=== PATIENT | male | born 1945 | race Caucasian/White ===

== ENCOUNTER 2018-10-05 05:31 | Inpatient (IN) | payer MEDICARE, OTHER ==
--- NOTE | 2018-09-26 20:57 | HP ---
PREOPERATIVE HISTORY AND PHYSICAL: DATE OF ADMISSION/SURGERY: 10/05/18 DATE OF OFFICE VISIT: 09/26/18 ATTENDING SURGEON: Dr. Carol Ann Dey.* (DICTATED BY JANIS CALLOWAY) PROCEDURE: Left total shoulder reverse. CHIEF COMPLAINT: Left shoulder pain. HISTORY OF PRESENT ILLNESS: Yaya is a 73-year-old male who presents to clinic for left shoulder pain due to osteoarthritis and rotator cuff injury. He has failed conservative measures, therefore agreed to undergo a left total shoulder reverse with Dr. Dey on 10/05/18. PAST MEDICAL HISTORY: Hypertension, GERD, BPH, type 2 diabetes, degenerative joint disease, high cholesterol, and paroxysmal AFib. PAST SURGICAL HISTORY: Appendectomy, cataract surgery, carpal tunnel release, bilateral knee scopes and bilateral knee total arthroplasties, clavicle ORIF. The patient denies prior complications with anesthesia. MEDICATIONS: 1. Latanoprost 0.005 one drop each eye. 2. Metformin 1000 mg 1 by mouth twice a day. 3. Oxybutynin 5 mg 1 by mouth every day. 4. Amlodipine besylate/benazepril HCL 10/20 mg 1 by mouth every day. 5. Bisoprolol fumarate/hydrochlorothiazide 5/6.25 two every day. 6. Brimonidine tartrate 0.2% one drop each eye twice daily. 7. Pravastatin 40 mg 1 by mouth at bedtime. 8. Acetaminophen 650 mg 1 by mouth every 4 hours as needed for pain. 9. Eliquis 5 mg 1 by mouth twice a day. ALLERGIES: PENICILLIN, SULFA ANTIBIOTICS, HORSE-DERIVED PRODUCTS. FAMILY HISTORY: Positive for heart disease, diabetes, cancer. Denies family history of DVT or PE. SOCIAL HISTORY: He lives with his spouse. He is retired. He is a former smoker. He smoked tobacco when he was in college. He reports occasional alcohol consumption. He is right-hand dominant. REVIEW OF SYSTEMS: A 14-point review of systems was reviewed with the patient. Positive for current complaint, otherwise negative. Denies fever, chills, chest pain, shortness of breath, history of bleeding disorder, history of DVT or PE. PHYSICAL EXAMINATION GENERAL: A 73-year-old well-developed, well-nourished male, in no acute distress. VITAL SIGNS: Height 70, weight 239, pulse 72, blood pressure 122/72, respiratory rate 12, BMI 34.3. HEENT: Normocephalic, atraumatic. PERRLA. Throat clear. NECK: Supple. PULMONARY: Lungs are clear to auscultation bilaterally. No wheezing, rhonchi, or rales. CARDIO: Regular rate and rhythm. S1, S2. No murmurs, gallops, or rubs. No edema. ABDOMEN: Positive bowel sounds. Soft, nontender. NEURO: Alert and oriented x3. Cranial nerves grossly intact. MUSCULOSKELETAL: Left upper extremity, skin is intact. No tenderness over the anterior joint line. No warmth or erythema. Forward flexion to 90, abduction to 45, external rotation to 30. Full range of motion over the wrist and hand. +2 radial pulse. +4/5 strength to rotator cuff testing with pain. Sensation intact to light touch distally. DIAGNOSTIC STUDIES: MRI revealed full-thickness tear of the supraspinatus and infraspinatus tendon and severe glenohumeral joint osteoarthritis. IMPRESSION: Left shoulder severe osteoarthritis and complete rotator cuff tear. PLAN: The patient is scheduled to undergo a left total shoulder reverse with Dr. Dey on 10/05/18. He will follow up 10 to 14 days postop for followup and suture removal as well as postop x-rays. Percocet will be used for postop pain management. He is cleared by Cardiology, but was instructed to hold his Eliquis 2 days before surgery. JANIS CALLOWAY [id number]/[facility] #: [id number] [facility]ITAL[facility]
[~2018-10-05 05:31] MED LIST: Buffered Lidocaine 0.9% SYRIN* 5 ML/SYR SYRINGE INTRADERM ONE
--- OUTSIDE RECORDS SUMMARY | 2018-10-05 05:34 | XMS REPORT | Continuity of Care Document ---
:1945 External Reference #:[id number] Author Name JulitoHerve kamara Care Team Providers Name Role Phone Cheryl Gray, JESUS Primary Care Physician Unavailable Payers Type Date Identification Numbers Payment Provider Subscriber Effective: Policy Number: [id number] Medicare Yaya Mason 2011 PayID: [id number] [address] [place] [address] Effective: 2014 Policy Number: Lifetime Benefit Yaya Mason [id number] Solution Group Number: [id number] [address] [address] PayID: [facility] NATASHA Donovan [id number] Advance Directives Description No Information Available Problems Date Description Provider Status Onset: 08/08/2018 Full thickness rotator cuff tear Carol Ann Dey MD Active Onset: 12/02/2016 Localized, primary osteoarthritis of the Carol Ann Dey MD Active shoulder region Family History Date Family Member(s) Problem(s) Comments General Heart Disease General Diabetes General Cancer General fam hx His mother from congestive heart failure at the age of 50. His sister of a brain aneurysm and she was a smoker. His older brother had a heart attack and subsequent pacemaker in his 60s and he was a nonsmoker, of a CVA (? 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 2 grown children with families Smokeless Tobacco Never Used Smokeless Tobacco ETOH Use Occasionally consumes 10-15 per wk alcohol Tobacco Use Start: Unknown End: Patient is a former in college Unknown smoker Smoking Status Reviewed: 09/26/18 Patient is a former in college smoker Exercise Exercises sporadically Type/Frequency Allergies, Adverse Reactions, Alerts Date Description Reaction Status Severity Comments 11/07/2013 Penicillin Active 11/07/2013 Sulfa Antibiotics Active 11/07/2013 Horse-derived Products Active Medications Medication Date Status Form Strength Qnty SIG Indications Ordering Provider Latanoprost // Active .005 one drop Unknown 0000 each eye daily Metformin HCL / Active Tablets ER 1000mg 1 tablet Unknown 0000 24HR twice a day by mouth Oxybutynin / Active Tablets ER 5mg 1 by mouth Unknown Chloride 0000 24HR every day Amlodipine / Active Capsules 10-20mg 1 by mouth Unknown Besylate/Benaze 0000 every day pril HCL Bisoprolol / Active Tablets 5-6.25mg 2 by mouth Unknown Fumarate/Hydroc 0000 every day hlorothiazide Brimonidine / Active Solution 0.2% 1 drop both Unknown Tartrate 0000 eyes twice daily Pravastatin / Active Tablets 40mg take one Unknown Sodium 0000 tablet by mouth at bedtime Acetaminophen / Active Tablets ER 650mg 1 tab by Unknown ER 0000 mouth q4 hours as needed pain Eliquis / Active Tablets 5mg 1 by mouth Unknown 0000 twice a day Eliquis 09/14/ Hx Tablets 5mg 180ta 1 by mouth Jonathan Dia 2017 - bs twice a day DO Christoph 09/25/ [facility] 2017 Naproxen 09/04/ Hx Tablets 250mg 1 tablet by Cristóbal 2017 - mouth as H. 09/14/ needed Octavio 2017 R.P.A.-C Naproxen 02/06/ Hx Tablets 500mg 60tab 1 tab by Jody 2013 - s mouthonce Jaime, 09/04/ to twice a M.D. 2017 day prn Ultracet 12/13/ Hx Tablets 37.5-325m 50tab 1 - 2 po Haylee 2014 - g s q4-6hr prn Wisdom, 02/05/ pain M.D. 2013 Glipizide / Hx 5mg 1/2 tab po Unknown 0000 - bid 2017 Pravastatin / Hx Unknown Sodium 0000 - 2016 Amlodipine/Margie / Hx 10-20mg Unknown zepril 0000 - 2016 Bisoprolol-HCTZ / Hx 6-6.25mg Unknown - 2016 Fenofibrate / Hx 54mg 1 po daily Unknown 0000 - 2017 Aspirin / Hx 325mg 1 daily Unknown 0000 - 2016 Timolol Maleate / Hx one drop Unknown 0000 - each eye bid 2016 Lotrisone / Hx Cream 1-0.05% apply Unknown 0000 - externally bid 2016 Pravastatin / Hx Tablets 40mg 1 tablet Unknown Sodium 0000 - daily at 03/14/ bedtime 2017 Meclizine HCL / Hx Tablets 25mg 1-2 tablets Unknown 0000 - hs as needed for 2016 vertigo Atorvastatin / Hx Tablets 10mg 1 tablet po [place], Calcium 0000 - daily Cheryl 09/11/ C., INDUSTRIAL SOCIOLOGIST 2017 Medications Administered in Office Medication Date Status Form Strength Qnty SIG Indications Ordering Provider Inj, 09/14/ Administered Injection Jonathan Dia Regadenoson, 2017 DO Christoph 0.1 MG FACC Technetium TC 09/14/ Administered Injection Jonathan S. 99M 2016 DO Christoph Tetrofosmin, FACC Per Unit Dose Up To 40 Millicuries Depomedrol 40MG 03/17/ Administered Injection Haylee Rafita Wisdom M.D. No Injection 02/17/ Administered Injection Haylee 2016 Ankush Wisdom Xiaflex Inj 02/14/ Administered Injection Haylee Collagenase,Marie 2016 Ankush Wisdom stridium Histolyticum, 0.01MG Depomedrol 40MG 12/08/ Administered Injection Haylee Rafita Wisdom M.D. Triamcinolone 12/02/ Administered Injection Zaneb (Kenalog) 2016 MD Yissel Immunizations Description No Information Available Vital Signs Date Vital Result Comment 09/26/2018 9:33am Height 70 inches 5'10" Weight 239.00 lb Heart Rate 72 /min BP Systolic 122 mmHg BP Diastolic 72 mmHg Respiratory Rate 12 /min Pain Level 2 BMI (Body Mass Index) 34.3 kg/m2 09/13/2018 7:48am Height 70 inches 5'10" Weight 243.00 lb Heart Rate 69 /min reg BP Systolic 140 mmHg LA larg cuff sitting BP Diastolic 85 mmHg LA larg cuff sitting Respiratory Rate 18 /min BMI (Body Mass Index) 34.9 kg/m2 08/08/2018 8:33am Height 70 inches 5'10" Weight 242.00 lb Heart Rate 68 /min BP Systolic Sitting 160 mmHg Rue lg cuff BP Diastolic Sitting 98 mmHg Rue lg cuff BMI (Body Mass Index) 34.7 kg/m2 07/11/2018 1:14pm Heart Rate 72 /min BP Systolic 152 mmHg BP Diastolic 66 mmHg Respiratory Rate 16 /min Pain Level 0 03/15/2018 1:49pm Height 70 inches 5'10" Weight 242.00 lb Heart Rate 60 /min BP Systolic Sitting 120 mmHg Lue large cuff BP Diastolic Sitting 82 mmHg Lue large cuff BP Systolic Standing 112 mmHg Lue large cuff BP Diastolic Standing 78 mmHg Lue large cuff Respiratory Rate 16 /min BMI (Body Mass Index) 34.7 kg/m2 Ejection Fraction 50-55% 11/08/17 09/21/2017 3:22pm Height 70 inches 5'10" Weight 248.00 lb Heart Rate 56 /min BP Systolic Sitting 134 mmHg Lue large cuff BP Diastolic Sitting 94 mmHg Lue large cuff BP Systolic Standing 136 mmHg Lue BP Diastolic Standing 98 mmHg Lue Respiratory Rate 14 /min BMI (Body Mass Index) 35.6 kg/m2 09/05/2017 12:35pm Height 70 inches 5'10" Weight 251.00 lb no shoes Heart Rate 58 /min irregular BP Systolic 102 mmHg Rue large cuff BP Diastolic 62 mmHg Rue large cuff BP Systolic Sitting 102 mmHg Lue large cuff BP Diastolic Sitting 60 mmHg Lue large cuff BP Systolic Standing 102 mmHg Lue large cuff BP Diastolic Standing 62 mmHg Lue large cuff Respiratory Rate 16 /min BMI (Body Mass Index) 36.0 kg/m2 03/17/2017 9:09am Height 70 inches 5'10" Weight 250.00 lb BP Systolic 116 mmHg BP Diastolic 81 mmHg Body Temperature 98.6 F Pain Level 0 BMI (Body Mass Index) 35.9 kg/m2 02/17/2017 9:54am Height 70 inches 5'10" Weight 250.00 lb Heart Rate 75 /min BP Systolic 151 mmHg BP Diastolic 88 mmHg Respiratory Rate 16 /min BMI (Body Mass Index) 35.9 kg/m2 02/14/2017 10:16am Height 70 inches 5'10" Weight 250.00 lb Heart Rate 59 /min BP Systolic 182 mmHg BP Diastolic 81 mmHg Body Temperature 97.3 F BMI (Body Mass Index) 35.9 kg/m2 12/08/2016 8:37am Height 70 inches 5'10" Weight 250.00 lb Heart Rate 72 /min BP Systolic Sitting 136 mmHg BP Diastolic Sitting 72 mmHg Respiratory Rate 18 /min Pain Level 0 BMI (Body Mass Index) 35.9 kg/m2 12/02/2016 3:04pm Height 70 inches 5'10" Weight 250.00 lb Heart Rate 64 /min Respiratory Rate 16 /min Pain Level 5 BMI (Body Mass Index) 35.9 kg/m2 10/22/2015 1:40pm Height 70 inches 5'10" Weight 250.00 lb Heart Rate 54 /min BP Systolic 156 mmHg BP Diastolic 68 mmHg BMI (Body Mass Index) 35.9 kg/m2 02/06/2015 11:17am Height 70 inches 5'10" Weight 250.00 lb Pain Level 0 BMI (Body Mass Index) 35.9 kg/m2 03/14/2014 8:56am Height 69 inches 5'9" Heart Rate 58 /min BP Systolic 189 mmHg BP Diastolic 88 mmHg 02/07/2014 8:22am Height 69 inches 5'9" Weight 255.00 lb Heart Rate 60 /min BMI (Body Mass Index) 37.7 kg/m2 02/06/2014 2:01pm Height 69 inches 5'9" Weight 255.00 lb Heart Rate 60 /min BMI (Body Mass Index) 37.7 kg/m2 01/10/2014 11:20am Height 70 inches 5'10" Weight 255.00 lb Heart Rate 55 /min BP Systolic 154 mmHg BP Diastolic 88 mmHg BMI (Body Mass Index) 36.6 kg/m2 12/13/2013 10:20am Heart Rate 64 /min BP Systolic 146 mmHg BP Diastolic 111 mmHg 11/07/2013 2:07pm Height 69 inches 5'9" Weight 255.00 lb Heart Rate 59 /min BP Systolic 170 mmHg BP Diastolic 89 mmHg BMI (Body Mass Index) 37.7 kg/m2 Results Description No Information Available Procedures Date Code Description Status 09/13/2018 02852 EKG Tracing & Interpretation Completed 03/15/2018 10769 EKG Tracing & Interpretation Completed 11/08/2017 37838 ECHO Transthoracic, Real-Time 2D With Doppler And Color Completed Flow 11/08/2017 78008 ECHO Transthoracic, Real-Time 2D With Doppler And Color Completed Flow 09/21/2017 85530 EKG Tracing & Interpretation Completed 09/14/2017 33047 Stress Test Completed 09/14/2017 45797 Myocardial Perfusion Imaging Tomographic (Spect) Multiple Completed Studies 09/05/2017 04685 EKG Tracing & Interpretation Completed 03/17/2017 14265 Inject/Drain Joint/Bursa Major W/O US Completed 02/17/2017 56999 Manipulation,Palmar Fascial Cord, Post Enzyme Injection Completed Single 02/14/2017 Injection,Enzyme Palmar Fascial Cord Completed 12/08/2016 Injection Single Tendon Origin/Insertion Completed 12/02/2016 Inject/Drain Joint/Bursa Major W/O US Completed 01/29/2014 71099 Carpal Tunnel Release Completed 11/07/2013 83869 Rad Exam; Foot Comp Completed 11/07/2013 78941 Rad Exam; Ankle Comp Completed 01/02/2010 30370 Rad Exam; Pelvis Completed 01/02/2010 38516 Rad Exam; Spine Lumbosacral Completed Encounters Type Date Location Provider Dx Diagnosis Office Visit 09/13/2018 [facility] Jonathan Dia Z01.810 Encounter for 8:00a Of Alex Hawthorne DO FACC preprocedural cardiovascular examination I48.0 Paroxysmal atrial fibrillation I10 Essential (primary) hypertension E78.5 Hyperlipidemia, unspecified E66.8 Other obesity E11.9 Type 2 diabetes mellitus without complications I49.3 Ventricular premature depolarization Office Visit 08/08/2018 Orth[facility] Carol Ann Dey M19.012 Primary 8:30a Services Of MD rivas left C.M.A. shoulder M75.122 Complete rotatr-cuff tear/ruptr of left shoulder, not trauma Office Visit 07/11/2018 Ramona Dey M19.012 Primary 1:00p Services Of MD rivas left C.M.A. shoulder Office Visit 03/15/2018 [place] Dia I48.0 Paroxysmal atrial 2:00p Cardiology Fercho Hawthorne DO fibrillation [facility] E11.9 Type 2 diabetes mellitus without complications I10 Essential (primary) hypertension E78.5 Hyperlipidemia, unspecified E66.8 Other obesity Office Visit 09/21/2017 4:00p [facility] Jonathan Dia I48.0 Paroxysmal atrial Of [facility], DO fibrillation FACC E11.9 Type 2 diabetes mellitus without complications I10 Essential (primary) hypertension E78.5 Hyperlipidemia, unspecified E66.8 Other obesity Office Visit 09/05/2017 [facility] Jonathan SDawson R94.31 Abnormal 1:00p Cardiology Of [facility], DO electrocardiogram [facility] FAC [ECG] [EKG] E11.9 Type 2 diabetes mellitus without complications I10 Essential (primary) hypertension E78.5 Hyperlipidemia, unspecified E66.8 Other obesity Z82.49 Family hx of ischem heart dis and oth dis of the circ sys Office Visit 03/17/2017 9:15a Orthopedic Haylee M72.0 Palmar fascial Services Of Ankush Wisdom fibromatosis C.M.A. [Dupuytren] M19.012 Primary osteoarthritis, left shoulder Office Visit 12/08/2016 Orthopedic Haylee M77.12 Lateral 8:30a Services Of Ankush Wisdom epicondylitis, left C.M.A. elbow M72.0 Palmar fascial fibromatosis [Dupuytren] Office Visit 12/02/2016 Orthopedic Carol Ann Dey, M19.011 Primary 2:45p Services Of osteoarthritis, C.M.A. right shoulder M19.012 Primary osteoarthritis, left shoulder Office Visit 10/22/2015 Orthopedic Carol Ann Dey, M19.021 Primary 1:30p Services Of osteoarthritis, C.M.A. right elbow M19.022 Primary osteoarthritis, left elbow M19.011 Primary osteoarthritis, right shoulder M19.012 Primary osteoarthritis, left shoulder Office Visit 02/06/2015 Orthopedic Haylee 728.6 Contracture Palmar 11:15a Services Of Ankush Wisdom Fascia C.M.A. Office Visit 02/06/2014 Orthopedic Osman Lynch, 715.97 Osteoarthrosis 1:45p Services Of Ankush Unspec Genlzd Or C.M.A. Localized Ankle & Foot Office Visit 12/13/2013 Orthopedic Haylee 354.0 Carpal Tunnel 10:30a Services Of Ankush Wisdom Syndrome C.M.A. Office Visit 11/07/2013 Orthopedic Osman Lynch, 715.97 Osteoarthrosis 2:30p Services Of Ankush Unspec Genlzd Or C.M.A. Localized Ankle & Foot Office Visit 01/02/2010 Orthopedic Melba, 846.9 Sprains & Strains 10:00a [facility] C.M.A. NaldoSDawsonA.-O Unspec Site 715.95 Osteoarthrosis Unspec Genlzd Or Localized Pelvic & Thigh Plan of Treatment Future Appointment(s):10/05/2018 7:30 am - Glenis Marie PA-C at [facility]opedic Services Of C.M.A.10/05/2018 7:30 am - Carol Ann Dey MD at [facility] Of C.M.A.09/26/2018 - Carol Ann Dey, MDM75.122 Complete rotator cuff tear or rupture of left shoulder, notFollow up:10-14 days post opM19.012 Primary osteoarthritis, left shoulder
--- OUTSIDE RECORDS SUMMARY | 2018-10-05 05:36 | XMS REPORT | Continuity of Care Document ---
:1945 External Reference #:[id number] Author Name Annel Villegas Care Team Providers Name Role Phone Cheryl Gray, JESUS Primary Care Physician Unavailable Payers Type Date Identification Numbers Payment Provider Subscriber Effective: Policy Number: [id number] Medicare Yaya Mason 2011 PayID: [id number] [address] [place] [address] Effective: 2014 Policy Number: Lifetime Benefit Yaya Mason [id number] Solution Group Number: [id number] [address] [address] PayID: [facility] [place] [address] Advance Directives Description No Information Available Problems [...] in his 60s and he was a nonsmoker. 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 2 grown children with families Smokeless Tobacco Never Used Smokeless Tobacco ETOH Use Occasionally consumes 10-15 per wk alcohol Tobacco Use Start: Unknown End: Patient is a former in college Unknown smoker Smoking Status Reviewed: 09/13/18 Patient is a former in college smoker Exercise Exercises sporadically Type/Frequency Allergies, Adverse Reactions, Alerts Date Description Reaction Status Severity Comments 11/07/2013 Penicillin Active 11/07/2013 Sulfa Antibiotics Active 11/07/2013 Horse-derived Products Active Medications Medication Date Status Form Strength Qnty SIG Indications Ordering Provider Eliquis 09/14/ Active Tablets 5mg 180ta 1 by mouth Jonathan Eller bs twice a day DO DARLEEN Hawthorne Glipizide / Active 5mg 1/2 tab po Unknown 0000 bid Latanoprost / Active .005 one drop Unknown 0000 each [...] 0000 mouth q4 hours as needed pain Naproxen 09/04/ Hx Tablets 250mg 1 tablet by Cristóbal 2017 - mouth as H. 09/14/ needed Rafita Cunningham R.P.A.-C Naproxen 02/06/ Hx Tablets 500mg 60tab 1 tab by Jody 2014 - s mouthonce Jaime, 09/04/ to twice a M.D. 2016 day prn Ultracet 12/13/ Hx Tablets 37.5-325m 50tab 1 - 2 po Haylee 2014 - g s q4-6hr prn Wisdom, 02/05/ pain M.D. 2013 Pravastatin / Hx Unknown Sodium 0000 - 2016 Amlodipine/[place] / Hx 10-20mg Unknown zepril - 2016 Bisoprolol-HCTZ / Hx 6-6.25mg Unknown 0000 - 2016 Fenofibrate / Hx 54mg 1 po daily Unknown 0000 - 2017 Aspirin / Hx 325mg 1 daily Unknown 0000 - 2016 Timolol Maleate / Hx one drop Unknown 0000 - each eye bid 2016 Lotrisone / Hx Cream 1-0.05% apply Unknown 0000 - externally bid 2016 Pravastatin / Hx Tablets 40mg 1 tablet Unknown Sodium 0000 - daily at 03/14/ bedtime 2018 Meclizine HCL / Hx Tablets 25mg 1-2 tablets Unknown 0000 - hs as 09/04/ needed for 2017 vertigo Atorvastatin / Hx Tablets 10mg 1 tablet po Isaac, Calcium 0000 - daily Cheryl 09/11/ C., TELEGRAPH MECHANIC 2018 Medications Administered in Office Medication Date Status Form Strength Qnty SIG Indications Ordering Provider Inj, 09/14/ Administered Injection Jonathan Dia Regadenoson, 2017 DO Christoph 0.1 MG FACC Technetium TC 09/14/ Administered Injection Jonathan S. 99M 2016 DO Christoph Tetrofosmin, FACC Per Unit Dose Up To 40 Millicuries Depomedrol 40MG 03/17/ Administered Injection Haylee 2016 Ankush Wisdom No Injection 02/17/ Administered Injection Haylee 2016 Ankush Wisdom Xiaflex Inj 02/14/ Administered Injection Haylee Collagenase,Marie 2016 Ankush Wisdom stridium Histolyticum, 0.01MG Depomedrol 40MG 12/08/ Administered Injection Haylee 2016 Ankush Wisdom Triamcinolone 12/02/ Administered Injection Zaneb (Kenalog) 2016 MD Yissel Immunizations Description No Information Available Vital Signs Date Vital Result Comment 09/13/2018 7:48am Height 70 inches 5'10" Weight [...] Available Procedures Date Code Description Status 09/13/2018 45280 EKG Tracing & Interpretation Completed 03/15/2018 12514 EKG Tracing & Interpretation Completed 11/08/2017 91251 ECHO Transthoracic, Real-Time 2D With Doppler And Color Completed Flow 11/08/2017 91196 ECHO Transthoracic, Real-Time 2D With Doppler And Color Completed Flow 09/21/2017 76222 EKG Tracing & Interpretation Completed 09/14/2017 42920 Stress Test Completed 09/14/2017 64942 Myocardial Perfusion Imaging Tomographic (Spect) Multiple Completed Studies 09/05/2017 86734 EKG Tracing & Interpretation Completed 03/17/2017 Inject/Drain Joint/Bursa Major W/O US Completed 02/17/2017 30255 Manipulation,Palmar Fascial Cord, Post Enzyme Injection Completed Single 02/14/2017 Injection,Enzyme Palmar Fascial Cord Completed 12/08/2016 Injection Single Tendon Origin/Insertion Completed 12/02/2016 Inject/Drain Joint/Bursa Major W/O US Completed 01/29/2014 57377 Carpal Tunnel Release Completed 11/07/2013 50527 Rad Exam; Foot Comp Completed 11/07/2013 27948 Rad Exam; Ankle Comp Completed 01/02/2010 87620 Rad Exam; Pelvis Completed 01/02/2010 89778 Rad Exam; Spine Lumbosacral Completed Encounters Type Date Location Provider Dx Diagnosis Office Visit 08/08/2018 Orth[facility] Carol Ann Dey MD M19.012 Primary 8:30a Services Of C.M.A. osteoarthritis, left shoulder M75.122 Complete rotatr-cuff tear/ruptr of left shoulder, not trauma Office Visit 07/11/2018 Orthopedic Vel Matt9.012 Primary 1:00p Services Of osteoarthritis, left C.M.A. shoulder Office Visit 03/15/2018 [place] Jonathan S. I48.0 Paroxysmal atrial 2:00p Cardiology Fercho Hawthorne DO fibrillation [facility] FACC E11.9 Type 2 diabetes mellitus without complications I10 Essential (primary) hypertension E78.5 Hyperlipidemia, unspecified E66.8 Other obesity Office Visit 09/21/2017 4:00p [place] [facility] Jonathan S. I48.0 Paroxysmal atrial Of [facility] DO Christoph fibrillation FACC E11.9 Type 2 diabetes mellitus without complications I10 Essential (primary) hypertension E78.5 Hyperlipidemia, unspecified E66.8 Other obesity Office Visit 09/05/2017 [place] Jonathan S. R94.31 Abnormal 1:00p Cardiology Fercho Hawthorne DO electrocardiogram [facility] FACC [ECG] [EKG] E11.9 Type 2 diabetes mellitus [...] shoulder Office Visit 10/22/2015 Orthopedic Carol Ann Dey M19.021 Primary 1:30p Services Of osteoarthritis, C.M.A. [...] 846.9 Sprains & Strains 10:00a Services Of [place], Sacroiliac Region C.M.A. R.S.A.-O Unspec Site 715.95 Osteoarthrosis Unspec Genlzd Or Localized Pelvic & Thigh Plan of Treatment Future Appointment(s):10/05/2018 7:30 am - Glenis Marie PA-C at [facility]09/26/2018 9:15 am - Carol Ann Dey MD at [facility] Of [facility].10/05/2018 7:30 am - Carol Ann Dey MD at Orthopedic Services Of [facility].09/13/2018 - Jonathan Hawthorne DO FACCZ01.810 Encounter for preprocedural cardiovascular examinationFollow up:1 year
[2018-10-05] MEDS ORDERED: Lactated Ringers 1000 ML Bag* 1,000 ML IV SCH (06:00)
[2018-10-05] MEDS ORDERED: Famotidine IV* 10 MG/ML 2 ML (20 mg) IV ONE (06:00)
[2018-10-05] MEDS ORDERED: Dexamethasone IV* 4 MG/ML 1 ML (4 MG) IV SLOW PU ONE (06:00)
[2018-10-05] MEDS ORDERED: Dexamethasone IV* 4 MG/ML 1 ML (4 MG) ONE (06:29)
[2018-10-05] MEDS ORDERED: Famotidine IV* 10 MG/ML 2 ML (20 mg) ONE (06:29)
[2018-10-05] MEDS ORDERED: Clindamycin 900 MG/D5W BAG(*) 900 MG/50 ML BAG IVPB ONE (06:30)
[2018-10-05] MEDS ORDERED: ROPIVACAINE 5 MG/ML 30 ML BTL (0.5%) ONE (06:53)
[2018-10-05] MEDS ORDERED: Insulin REGULAR(*) 1 UNITS UNIT IV PUSH ONE ×2 (07:07→11:19)
[2018-10-05] MEDS ORDERED: Ropivacaine* 2 MG/ML 20 ML VIAL (0.2%) ONE (07:13)
[2018-10-05] MEDS ORDERED: Insulin REGULAR(*) 1 UNITS UNIT ONE ×2 (07:17→11:21)
[2018-10-05] MEDS ORDERED: Ondansetron INJ* 2 MG/ML VIAL ONE (07:28)
[2018-10-05] MEDS ORDERED: Phenylephrine INJ* 10 MG/ML 1 ML VIAL (10 MG) ONE (07:28)
[2018-10-05] MEDS ORDERED: Propofol* 10 MG/ML 20 ML BTL ONE (07:28)
[2018-10-05] MEDS ORDERED: Midazolam* 1 MG/ML 5 ML VIAL (5 MG) ONE (07:30)
[2018-10-05] MEDS ORDERED: fentaNYL* 50 MCG/ML 2 ML VIAL (100 MCG VIAL) ONE ×2 (07:30→08:11)
[2018-10-05] MEDS ORDERED: Atracurium* 10 MG/ML 10 ML VIAL ONE (07:30)
[2018-10-05] MEDS ORDERED: Ondansetron INJ* 2 MG/ML VIAL IV PRN ×2 (09:06→11:17)
[2018-10-05] MEDS ORDERED: Naloxone* 0.4 MG/ML 1 ML VIAL IV PRN (09:06)
[2018-10-05] MEDS ORDERED: HYDROmorphone INJ1* 1 MG/ML SYRINGE IV PRN (09:06)
[2018-10-05] MEDS ORDERED: fentaNYL* 50 MCG/ML 2 ML VIAL (100 MCG VIAL) IV PRN (09:06)
[2018-10-05] MEDS ORDERED: DiMENhydriNATE IV* 50 MG/ML VIAL IV PUSH PRN (09:06)
[2018-10-05] MEDS ORDERED: oxyCODONE/Acetamin 5/325 MG* TAB PO PRN ×3 (09:06→11:17)
[2018-10-05] MEDS ORDERED: Temazepam CAP* 15 MG PO PRN (11:17)
[2018-10-05] MEDS ORDERED: Cyclobenzaprine TAB* 10 MG PO PRN (11:17)
[2018-10-05] MEDS ORDERED: oxyCODONE TAB* 5 MG TAB PO PRN (11:17)
[2018-10-05] MEDS ORDERED: diPHENhydraMINE IV* 50 MG/ML 1 ml VIAL (BENADRYL) IV PRN (11:17)
[2018-10-05] MEDS ORDERED: Ondansetron ODT TAB* 4 MG PO PRN (11:17)
[2018-10-05] MEDS ORDERED: Magnesium Hydroxide LIQ* 30 ML UDC PO PRN (11:17)
[2018-10-05] MEDS ORDERED: diPHENhydraMINE PO* 25 MG PO PRN (11:17)
[2018-10-05] MEDS ORDERED: Morphine VIAL* 4 MG/ML VIAL (1 ml vial) IV PRN (11:17)
[2018-10-05] MEDS ORDERED: traMADol TAB* 50 MG PO PRN (11:17)
[2018-10-05] MEDS ORDERED: Polyethylene Glycol 3350* 17 GM PACKET PO PRN (11:17)
[2018-10-05] MEDS ORDERED: Bisacodyl SUPP* 10 MG SUPP PR PRN (11:17)
[2018-10-05] MEDS ORDERED: Glycopyrrolate IV* 0.2 MG/ML 1 ML VIAL ONE (11:38)
[2018-10-05] MEDS ORDERED: Neostigmine Methylsulfate* 1 MG/ML 10 ML VIAL (1 mg/ml) ONE (11:38)
[2018-10-05] MEDS: Lactated Ringers 1000 ML Bag* 1,000 ML IV SCH ×2 (13:00→23:44)
[2018-10-05] MEDS: Acetaminophen TAB* 325 MG PO SCH ×2 (13:51→20:59)
--- NOTE | 2018-10-05 14:01 | PN ---
Subjective Date of Service: 10/05/18 Interval History: Resting in recliner on assessment and hoping for d/c tomorrow. Denies pain in left shoulder. Denies cp, sob, palpitations, n/v/d. Objective Active Medications: Acetaminophen (Tylenol Tab*) 975 mg PO Q8H [facility] Amlodipine Besylate (Norvasc Tab*) 10 mg PO QAM [facility] Atorvastatin Calcium (Lipitor*) 10 mg PO QAM [facility] Bisacodyl (Dulcolax Supp*) 10 mg NM DAILY PRN PRN Reason: constipation Brimonidine/Timolol (Combigan 0.2/0.5% (Nf)) 1 drop BOTH EYES BID [facility] Cyclobenzaprine HCl (Flexeril Tab*) 10 mg PO TID PRN PRN Reason: SPASMS Dimenhydrinate (Dramamine Iv*) 25 mg IV PUSH ONCE PRN PRN Reason: NAUSEA/VOMITING Diphenhydramine HCl (Benadryl Iv*) 25 mg IV Q6H PRN PRN Reason: itching Diphenhydramine HCl (Benadryl Po*) 25 mg PO Q6H PRN PRN Reason: itching Docusate Sodium (Colace Cap*) 100 mg PO BID [facility] Enoxaparin Sodium (Lovenox(*)) 40 mg SUBCUT Q24H [facility] Fentanyl Citrate (Fentanyl*) 50 mcg IV Q2M PRN PRN Reason: PAIN - MODERATE Hydromorphone HCl (Dilaudid Inj1s*) 0.2 mg IV Q5M PRN PRN Reason: PAIN - SEVERE Clindamycin HCl/Dextrose (Cleocin 600 Mg Ivpremix(*) Sdv) 600 mg in 50 mls @ 100 mls/hr IV Q8H [facility] Stop: 10/06/18 08:29 Lactated Ringer's (Lactated Ringers 1000 Ml Bag*) 1,000 mls @ 100 mls/hr IV PER RATE [facility] Last Admin: 10/05/18 13:00 Dose: 100 mls/hr Lactulose (Lactulose*) 30 ml PO Q6H PRN PRN Reason: constipation Latanoprost (Xalatan 0.005%*) 1 drop BOTH EYES QPM [facility] Lisinopril (Prinivil Tab*) 20 mg PO QAM [facility] Magnesium Hydroxide (Milk Of Magnesia Liq*) 30 ml PO Q6H PRN PRN Reason: constipation Morphine Sulfate (Morphine Vial*) 2 mg IV Q2H PRN PRN Reason: PAIN Naloxone HCl (Narcan*) 0.08 mg IV Q2M PRN PRN Reason: severe induced resp depression Non-Formulary Medication (Bisoprolol/Hydrochlorothiazide [Bisoprolol Fumarate/ Hctaz 10-6.25 Mg-]) 1 tab PO QAM [facility] Ondansetron HCl (Zofran Inj*) 4 mg IV ONCE PRN PRN Reason: NAUSEA/VOMITING Ondansetron HCl (Zofran Inj*) 4 mg IV Q6H PRN PRN Reason: nausea Ondansetron HCl (Zofran Odt Tab*) 4 mg PO Q6H PRN PRN Reason: NAUSEA Oxybutynin Chloride (Ditropan Xl Tab*) 5 mg PO QPM GLO Oxycodone HCl (Roxycodone Tab*) 10 mg PO Q4H PRN PRN Reason: pain Oxycodone/Acetaminophen (Percocet 5/325 Tab*) 1 tab PO ONCE PRN PRN Reason: PAIN - MODERATE Oxycodone/Acetaminophen (Percocet 5/325 Tab*) 1 tab PO Q4H PRN PRN Reason: PAIN Oxycodone/Acetaminophen (Percocet 5/325 Tab*) 2 tab PO Q4H PRN PRN Reason: PAIN Polyethylene Glycol/Electrolytes (Miralax*) 17 gm PO DAILY PRN PRN Reason: Constipation Temazepam (Restoril Cap*) 15 mg PO BEDTIME PRN PRN Reason: INSOMNIA Tramadol HCl (Ultram*) 50 mg PO Q6H PRN PRN Reason: PAIN Vital Signs - 8 hr 10/05/18 10/05/18 10/05/18 06:14 06:21 07:24 Temperature 98.1 F Pulse Rate 64 66 Respiratory 16 Rate Blood Pressure 178/77 178/77 (mmHg) O2 Sat by Pulse 96 96 Oximetry 10/05/18 10/05/18 10/05/18 07:36 07:43 07:54 Temperature Pulse Rate 77 60 66 Respiratory 21 16 19 Rate Blood Pressure 190/95 162/76 179/84 (mmHg) O2 Sat by Pulse 95 97 98 Oximetry 10/05/18 10/05/18 10/05/18 08:00 11:08 11:10 Temperature Pulse Rate 54 85 76 Respiratory 18 Rate Blood Pressure 188/97 (mmHg) O2 Sat by Pulse 98 95 96 Oximetry 10/05/18 10/05/18 10/05/18 11:16 11:21 11:27 Temperature 97.2 F Pulse Rate 70 67 60 Respiratory 19 21 19 Rate Blood Pressure 183/88 170/90 164/79 (mmHg) O2 Sat by Pulse 97 96 96 Oximetry 10/05/18 10/05/18 10/05/18 11:31 11:46 12:00 Temperature Pulse Rate 61 59 60 Respiratory 21 16 20 Rate Blood Pressure 157/77 137/67 (mmHg) O2 Sat by Pulse 96 96 97 Oximetry 10/05/18 10/05/18 10/05/18 12:01 12:16 12:31 Temperature Pulse Rate 59 61 60 Respiratory 14 19 16 Rate Blood Pressure 144/75 155/83 133/69 (mmHg) O2 Sat by Pulse 97 97 94 Oximetry 10/05/18 10/05/18 13:06 13:25 Temperature 97.6 F Pulse Rate 60 Respiratory 16 18 Rate Blood Pressure 155/78 (mmHg) O2 Sat by Pulse 98 Oximetry Oxygen Devices in Use Now: None Appearance: Well appearing Eyes: PERRLA Ears/Nose/Mouth/Throat: Clear Oropharnyx, Mucous Membranes Moist Neck: NL Appearance and Movements; NL JVP Respiratory: Symmetrical Chest Expansion and Respiratory Effort, Clear to Auscultation Cardiovascular: NL Sounds; No Murmurs; No JVD, RRR, No Edema Abdominal: NL Sounds; No Tenderness; No Distention Lymphatic: No Cervical Adenopathy Extremities: No Edema Skin: No Rash or Ulcers Neurological: Alert and Oriented x 3 Nutrition: Taking PO's Additional Lab and Data: Laboratory Results - last 24 hr 10/05/18 10/05/18 10/05/18 06:11 09:02 11:16 POC Glucose (mg/dL) 289 H 236 H 269 H 10/05/18 16:09 POC Glucose (mg/dL) 249 H Assess/Plan/Problems-Billing Assessment: 73 year old male who is s/p left shoulder replacement. pmh of htn, afib, and dm2 - Patient Problems (1) Hypertension Comment: - Patient has been normotensive and borderline hypertensive. - I would recommend continueing home medications as same and monitoring vital signs routinely (2) BPH (benign prostatic hyperplasia) Comment: - Cont Ditropan (3) Diabetes Comment: - Hold patients Metformin. He can resume after d/c - Sliding scale insulin ordered (4) Hyperlipidemia Comment: - Cont statin as same (5) Afib Comment: - Rate controlled - On Eliquis 5 mg po bid at home - Should resume as soon as possible. - I have ordered it to resume tomorrow. I have left a message with ortho PA. Status and Disposition: Thank you for allowing us to assist in the care of this patient. We will follow along with you during his hospital stay. Attending: Tuan Louis
[2018-10-05] MEDS ORDERED: Dextrose 50% Syringe 50 ML* 25 GM/50 ML SYRINGE IV PUSH PRN (15:33)
[2018-10-05] MEDS: Clindamycin 600 MG IVPREMIX(* 600 MG/50 ML SDV IV SCH ×2 (16:09→23:44)
[2018-10-05] MEDS: Insulin LISPRO* 1 UNITS UNIT SUBCUT SCH (17:23)
[2018-10-05] MEDS ORDERED: Oxybutynin XL TAB* 5 MG PO SCH (18:00)
[2018-10-05] MEDS ORDERED: Latanoprost 0.005%* 2.5 ml BTL BOTH EYES SCH (18:00)
[2018-10-05] MEDS ORDERED: Lisinopril TAB* 10 MG PO ONE (20:30)
[2018-10-05] MEDS ORDERED: amLODIPine TAB* 5 MG PO ONE (20:30)
[2018-10-05] MEDS: Docusate CAP* 100 MG PO SCH (20:57)
[2018-10-05] MEDS: Brimonid/Timolol 0.2/0.5%(NF) 10 ML OPHTH.SOLN BOTH EYES SCH (20:59)
[2018-10-05] MEDS ORDERED: metFORMIN* 1,000 MG TAB PO SCH (21:00)
[2018-10-06] MEDS: Acetaminophen TAB* 325 MG PO SCH ×2 (05:44→07:30)
[2018-10-06 06:53] LABS: Calcium 8.9 mg/dL (8.6-10.3); EGFR Non-African American 96.4 (>60); Potassium 4.2 mmol/L (3.5-5.0)
[2018-10-06 06:56] LABS: Hematocrit 35 % (42-52); Hemoglobin 12.2 g/dl (14.0-18.0); Mean Platelet Volume 8.4 fL (7.4-10.4); Platelet Count 187 10^3/ul (150-450)
[2018-10-06] MEDS: Clindamycin 600 MG IVPREMIX(* 600 MG/50 ML SDV IV SCH (07:16)
[2018-10-06 08:23] VITALS: BP 134/69
[2018-10-06] MEDS ORDERED: Apixaban* 5 MG TAB PO SCH (09:00)
[2018-10-06] MEDS ORDERED: HYDROCHLOROTHIAZIDE PO SCH (09:00)
[2018-10-06] MEDS ORDERED: [UNRECOGNIZED DRUG - OTHER] PO SCH (09:00)
[2018-10-06] MEDS ORDERED: BISOPROLOL PO SCH (09:00)
[2018-10-06] MEDS ORDERED: amLODIPine TAB* 5 MG PO SCH (09:00)
[2018-10-06] MEDS ORDERED: Lisinopril TAB* 10 MG PO SCH (09:00)
[2018-10-06] MEDS ORDERED: Atorvastatin* 10 MG TAB PO SCH (09:00)
[2018-10-06] MEDS: Docusate CAP* 100 MG PO SCH (09:16)
[2018-10-06] MEDS: Insulin LISPRO* 1 UNITS UNIT SUBCUT SCH (09:17)
[2018-10-06] MEDS: Brimonid/Timolol 0.2/0.5%(NF) 10 ML OPHTH.SOLN BOTH EYES SCH (09:17)
--- NOTE | 2018-10-06 09:30 | PN ---
Progress Note - Progress Note Date of Service: 10/06/18 SOAP: Subjective: []Patient seen sitting at edge of bed, ready to work with PT. Vicki reynaga. He is feeling well. Denies SOB, CP, dizziness. He has very little pain and is not using narcotics. He says tylenol will be enough. He hopes to go home early this afternoon. Objective: [] Vital Signs Temp 99.2 F 10/06/18 07:42 Pulse 71 10/06/18 07:42 Resp 17 10/06/18 07:42 BP 134/69 10/06/18 07:42 Pulse Ox 98 10/06/18 07:42 Intake & Output 10/05/18 10/06/18 10/06/18 18:59 06:59 18:59 Intake Total 960 1704 320 Output Total 430 1250 Balance 530 454 320 Intake: IV Fluids 850 969 CLINDAMYCIN 900 MG 50 LR 800 969 IVPB 55 ABX - CLINDAMYCIN 55 Oral 110 680 320 Output: Hemovac Amount #1 300 125 Urine 100 1125 Residual 30 Nazario 16 Fr 30 Laboratory Results - last 24 hr 10/05/18 10/05/18 10/05/18 11:16 16:09 20:46 Hgb Hct Plt Count MPV Sodium Potassium Chloride Carbon Dioxide Anion Gap BUN Creatinine Est GFR ( Amer) Est GFR (Non-Af Amer) BUN/Creatinine Ratio Glucose POC Glucose (mg/dL) 269 H 249 H 303 H Calcium 10/06/18 10/06/18 06:10 06:10 Hgb 12.2 L Hct 35 L Plt Count 187 MPV 8.4 Sodium 136 Potassium 4.2 Chloride 101 Carbon Dioxide 29 Anion Gap 6 BUN 15 Creatinine 0.79 Est GFR ( Amer) 116.7 Est GFR (Non-Af Amer) 96.4 BUN/Creatinine Ratio 19.0 Glucose 235 H POC Glucose (mg/dL) Calcium 8.9 Left shoulder dressings were changed, minimal drainage noted, hemovac drain discontinued, tolerated well, new dressings with tegaderm applied. moving left hand and fingers well no distal extrmity edema noted sensation intact LUE 2+ radial pulse Assessment: []s/p left reverse total shoulder arthroplasty POD #1 Plan: []PT/OT this am Dressing reinforcement at hemovac site as needed sling, remove daily for elbow ROM Discharge home today Follow up as scheduled with Dr. Dey.
--- NOTE | 2018-10-06 10:02 | OP ---
CC: Cheryl Gray NP* OPERATIVE REPORT: DATE OF OPERATION: 10/05/18 - Inpatient, room U 350-02 DATE OF : 47 SURGEON: Carol Ann Dey MD. RN HYPERBARIC: Glenis Marie and Trinh Gao. Assistants were needed for this case to help with positioning, retraction, and were utilized throughout all portions of the case. ANESTHESIOLOGIST: Dr. Burleson. ANESTHESIA: General with interscalene block. PRE-OP DIAGNOSIS: Left shoulder rotator cuff arthropathy. POST-OP DIAGNOSIS: Left shoulder rotator cuff arthropathy. OPERATIVE PROCEDURE: Left shoulder reverse shoulder arthroplasty and open biceps tenodesis. COMPLICATIONS: None. ESTIMATED BLOOD LOSS: Minimal. IMPLANTS USED: Tornier Aequalis Reversed II threaded baseplate 25 x 35 and reversed centered glenosphere 25 x 36, size 2B Aequalis Ascend Flex stem and +9 reversed insert with a centered reversed tray. OUTPUTS: Drain x1, to be removed postop day 1. INDICATIONS: Yaya Mason is a 73-year-old male who has had left shoulder pain and dysfunction. He has failed conservative management including physical therapy, anti-inflammatories, injections, and he has elected to proceed with surgical treatment. Risks and benefits were discussed at length include, but are not limited to, bleeding, infection, damage to nerves, vessels, surrounding structures, wound nonhealing, persistent pain, need for further surgery, scarring, stiffness, incomplete relief of symptoms, risks of anesthesia, fracture, dislocation, need for further surgery. DESCRIPTION OF PROCEDURE: The patient was greeted in the preoperative area by the attending surgeon. The correct extremity was marked and consent was confirmed. The patient underwent preop interscalene nerve block by the anesthesiologist, after which he was brought back to the operating suite, where he was placed in supine position on the operating table, then underwent general anesthesia and endotracheal intubation, after which he was appropriately positioned in the [facility] [place] chair position. All bony prominences were padded, secured carefully to the bed. The left shoulder was prepped and draped in the usual sterile fashion beginning with chlorhexidine soap, scrub, and alcohol wipe and then a final prep using ChloraPrep. After appropriate surgical pause indicating site, side, procedure, and administration of antibiotics, the deltopectoral incision was made with a 15 blade. The soft tissues were carefully dissected to expose the cephalic vein, which was taken laterally when the deltopectoral interval was identified. Soft tissues were carefully dissected. A blunt Hohmann was placed above the coracoid. Significant subdeltoid bursa was then released. Gently retracted to expose the anterior aspect of the humerus. Clavipectoral fascia was then incised and the lateral aspect of the long head of the biceps was developed. The CA ligament was released. At this point, the pec insertion proximal 1 cm dorsally was released. The biceps was then tenodesed with heavy nonabsorbable suture. This was tenotomized proximal to the biceps tenodesis and followed to the joint proximally. The biceps was tendinopathic with large cystic changes and this was taken as far as to the level of the subscap and the subscap was released in a subscap peel type fashion. This was then tagged with a #5 Ethibond suture for later closure. This was then carefully removed in its entirety. There were large anterior and inferior osteophytes that were identified as the shoulder was gently externally rotated. There were grade 4 changes to the humeral head. Once the subscap was protected and the head was exposed, osteophytes were carefully removed using a curved osteotome and rongeur. This helped to demonstrate where the neck actually was. The head was fully exposed at this time and we proceeded with the neck cut. The guide was used using general guidelines per the provisional neck cut. The cut was then made using the sagittal saw. A conservative cut was made initially , but then had to be revised, more bone had to be taken away and a more accessible cut was then made. The canal finder was docked to the sizing guide, then broaching began. Because the patient had good quality bone, metaphyseal bone size 2 was found to be appropriate. Protective plate was placed and attention was directed to the glenoid. The glenoid was carefully exposed using a posterior retractor. The subscap was carefully mobilized by releasing the superior, middle, and inferior glenohumeral ligaments. As this was done, the subscap was then mobilized. Beginning superiorly, the superior labrum was removed including the biceps and extending down anteriorly to the 5 o'clock position along the anterior aspect of the glenoid, labrum was removed. Then carefully, with tension on the inferior tissues, the inferior aspect of the glenoid soft tissue and labrum were carefully released. This demonstrated the entire glenoid was visible and all loose debris removed. Small osteophytes and loose bodies were then carefully removed as well at this point. A size 25 guide was then placed approximately 10 mm from the inferior aspect of the glenoid. The guidewire was placed and then primary 25 mm reaming was then performed. Then, the footprint reaming was then performed. A lot of this wear was posteriorly based. Once this was complete, the standard peg 8 mm cannulated drill bit was then drilled, then followed by the 6.5 mm cannulated drill bit drilled to just about 30 mm. This was measured and found to be about 32 mm. The size 35 mm was chosen for some overlap. The drill hole was then capped and the appropriate baseplate was then brought to the field and final instrument was then placed, was in complete excellent purchase. Four interlocking screws were then placed to the appropriate length. At this point, the size 36 centered glenosphere was then chosen and brought to the field and then impacted in good position, secured with a peg screw. Attention was then directed to the humeral head. The head was brought back through the wound and then the stem was checked to make sure there was not loosening, the Tornier baseplate was then placed. A trial was then placed. The size 6 poly was then placed. The shoulder was reduced and found to have forward flexion to about 140, abduction to about 90 degrees, external rotation to about 40 degrees, but there was a little bit more shuck than I liked, so I tried a +9 poly, which had a much better fit and much less shuck and appropriate deltoid tension. The final implants were then chosen , prepared on the back table by the attending surgeon. The trial implants were removed. The transosseous tunnels were placed to the lesser tuberosity, with # 5 Ethibond sutures to then repair the subscap tendon. The final implant was then impacted in position with good purchase. The shoulder was then carefully reduced taking through range of motion and again forward flexion to about 145, abduction to about 90, external rotation about 40. The wounds were then copiously irrigated with sterile saline. The subscap was then closed with the previously passed sutures in a horizontal mattress configuration. The wounds were copiously irrigated again. A Hemovac drain was then placed, and at this point, the wounds were irrigated again and the deltopectoral fascia was closed with #2 Ethibond suture for later identification. Wounds were irrigated yet again and then the skin was closed in layers with 2-0 Vicryl and 3-0 Monocryl. Sterile dressings were applied as well as a Cryo/Cuff and sling. He was awoken from anesthesia and transferred to PACU in stable condition. POSTOPERATIVE PLAN: He will be admitted and will have 24 hours of postoperative antibiotics. DVT prophylaxis will be low-molecular weight heparin while in-house. He will be discharged without due to no previous personal or family history. He will be nonweightbearing. He will be in a sling for 6 weeks. He will be discharged on pain medications. I will see the patient back in 2 weeks with repeat x-rays. [id number]/[facility] #: [id number] MTDD
[2018-10-06] MEDS ORDERED: Enoxaparin(*) 40 MG/0.4 ML SYR SUBCUT SCH (12:00)
--- NOTE | 2018-10-06 13:14 | DS ---
DISCHARGE SUMMARY: DATE OF ADMISSION: 10/05/18 DATE OF DISCHARGE: 10/06/18 ATTENDING PHYSICIAN: Dr. Dey* (dictated by JANIS Preston). ADMISSION DIAGNOSES: 1. Left shoulder rotator cuff arthropathy. 2. Osteoarthritis. DISCHARGE DIAGNOSES: 1. Left shoulder rotator cuff arthropathy. 2. Osteoarthritis. SURGERY PERFORMED: Left shoulder, reverse shoulder arthroplasty and open biceps tenodesis. HOSPITAL COURSE: The patient is a 73-year-old male, who has had left shoulder pain and dysfunction for quite sometime. He failed conservative management including physical therapy, antiinflammatories, cortisone injections, and elected to proceed with surgical intervention. He was taken to the operating room under the care of Dr. Carol Ann Dey on the date of 10/05/18 for the aforementioned procedures. He tolerated surgery well and left the operating room in stable condition. Postoperatively, he did very well with physical therapy and occupational therapy postoperative day #1. This pain was under excellent control with Tylenol. The patient did not feel that he wants to take narcotic pain medications. He was found to be orthopedically and medically stable for discharge to home the afternoon of 10/06/18. CONDITION ON DISCHARGE: Temperature 99.2, pulse 71, respiratory rate 17, O2 sat is 98% on room air, blood pressure 134/69. Hemoglobin 12.2, hematocrit 35. His dressings were taken down. There was scant bloody drainage on his 4x4s. His Hemovac drain was discontinued without any noted complications with new 4x4 dressings and Tegaderm applied. He is moving his fingers well. He has full sensation distally, 2+ radial pulse. PLAN: The patient will be discharged to home this afternoon. He may shower in 3 days, avoiding submerging his incision. The patient would like to take Tylenol for pain. He will resume his Eliquis 5 mg p.o. b.i.d. for atrial fibrillation starting today. He will wear the sling at all times except for skin care, bathing. He is encouraged to extend his elbow daily, otherwise, be in his sling for 6 weeks postoperatively. Recommend to follow up with Dr. Dey in the office in roughly 10 to 14 days as scheduled. JANIS PRESTON [id number]/[facility] #: [id number] MONICA
--- NOTE | 2018-10-06 18:16 | PN ---
Subjective Date of Service: 10/06/18 Interval History: Resting in bed on assessment. Denies pain to left shoulder. Reports only mild ache which is relieved with tylenol Denies cp, sob, palpations, n/v/d, dizziness. Objective Oxygen Devices in Use Now: None Appearance: Well appearing Eyes: No Scleral Icterus Ears/Nose/Mouth/Throat: Clear Oropharnyx, Mucous Membranes Moist Neck: NL Appearance and Movements; NL JVP Respiratory: Symmetrical Chest Expansion and Respiratory Effort, Clear to Auscultation Cardiovascular: NL Sounds; No Murmurs; No JVD, RRR, No Edema Abdominal: NL Sounds; No Tenderness; No Distention Lymphatic: No Cervical Adenopathy Extremities: No Edema Skin: No Rash or Ulcers Neurological: Alert and Oriented x 3 Nutrition: Taking PO's Result Diagrams: 10/06/18 06:10 10/06/18 06:10 Additional Lab and Data: Laboratory Results - last 24 hr 10/05/18 10/06/18 10/06/18 20:46 06:10 06:10 Hgb 12.2 L Hct 35 L Plt Count 187 MPV 8.4 Sodium 136 Potassium 4.2 Chloride 101 Carbon Dioxide 29 Anion Gap 6 BUN 15 Creatinine 0.79 Est GFR ( Amer) 116.7 Est GFR (Non-Af Amer) 96.4 BUN/Creatinine Ratio 19.0 Glucose 235 H POC Glucose (mg/dL) 303 H Calcium 8.9 Assess/Plan/Problems-Billing Assessment: 73 year old male who is s/p left shoulder replacement. pmh of htn, afib, and dm2 - Patient Problems (1) Hypertension Comment: - Patient has been normotensive - I would recommend continueing home medications as same a (2) BPH (benign prostatic hyperplasia) Comment: - Cont Ditropan (3) Diabetes Comment: - Resume metformin after discharge (4) Hyperlipidemia Comment: - Cont statin as same (5) Afib Comment: - Rate controlled - On Eliquis 5 mg po bid at home - Should resume as soon as possible. - I have ordered it to resume today Status and Disposition: Thank you for allowing us to assist in the care of this patient. I agree with patient's plan for discharge. Attending: Tuan Louis
== END 2018-10-06 11:50 | disposition home or self-care (01) | DRG 483 ==
LOC: AA 05:31 → SSU 11:17
PROVIDERS: ADMIT Orthopaedic Surgery; ATTEND Orthopaedic Surgery
PROC: 0RRK00Z Replacement of Left Shoulder Joint with Reverse Ball and Socket Synthetic Substitute, Open Approach (ICD-10-PCS; principal; 2018-10-05 07:30)
DX: M19.012 Primary osteoarthritis, left shoulder (principal); I10 Essential (primary) hypertension; Z96.653 Presence of artificial knee joint, bilateral; K21.9 Gastro-esophageal reflux disease without esophagitis; N40.0 Benign prostatic hyperplasia without lower urinary tract symptoms; E11.9 Type 2 diabetes mellitus without complications; M19.022 Primary osteoarthritis, left elbow; K57.90 Diverticulosis of intestine, part unspecified, without perforation or abscess without bleeding; E66.8 Other obesity; M25.712 Osteophyte, left shoulder; E78.5 Hyperlipidemia, unspecified; M75.122 Complete rotator cuff tear or rupture of left shoulder, not specified as traumatic; I48.0 Paroxysmal atrial fibrillation; Z98.49 Cataract extraction status, unspecified eye; Z82.49 Family history of ischemic heart disease and other diseases of the circulatory system; Z83.3 Family history of diabetes mellitus; Z87.891 Personal history of nicotine dependence; Z72.89 Other problems related to lifestyle; Z88.0 Allergy status to penicillin; Z88.2 Allergy status to sulfonamides; Z91.048 Other nonmedicinal substance allergy status; Z68.34 Body mass index [BMI] 34.0-34.9, adult; Z80.8 Family history of malignant neoplasm of other organs or systems; Z81.2 Family history of tobacco abuse and dependence; Z82.3 Family history of stroke
CPT/HCPCS: 36415; 80048; 85014; 85018; 85049; 88304; 88311; A9270-GY; C1713; C1776; G8987-GO-CJ; G8988-GO-CI; G8989-GO-CI; J1100; J2250; J2405; J2704; J2710; J2795; J3010